=== PATIENT | male | born 1960 | race Two or more races ===

== ENCOUNTER 2019-05-16 15:24 | Inpatient (IN) | payer BC, OTHER ==
[~2019-05-16] VITALS: Ht 167.6 cm; Wt 75.7 kg
--- NOTE | 2019-05-16 15:54 | NUR ---
PATIENT BROUGHT BACK TO ROOM IN A WHEEL CHAIR.
--- NOTE | 2019-05-16 16:14 | NUR ---
THIS IS A 58 YO M W/ C/O CHEST TIGHTNESS THAT STARTED 2 DAYS AGO. TODAY HE HAD SUDDEN ONSET OF DIZZINESS, SWEATING AND CHILLS. PATIENTS RESPIRATIONS ARE EVEN AND UNLABORED. PATIENT IS IN NO ACUTE DISTRESS. PATIENT IS RESTING ON GURNEY WITH FAMILY AT BEDSIDE AWAITING EVAL FROM PROVIDER. DENIES FURTHER NEEDS AT THIS TIME.
[2019-05-16 16:43] LABS: BASOPHILS # (AUTO) 0.04 x10^3/uL (0-0.1); BASOPHILS % (AUTO) 0 % (0-1); EOSINOPHILS # (AUTO) 0.08 x10^3/uL (0-0.4); EOSINOPHILS % (AUTO) 1 % (1-7); LYMPHOCYTES # (AUTO) 1.56 x10^3/uL (1-3.4); LYMPHOCYTES % (AUTO) 15 % (22-44); MD NO; MEAN CORPUSCULAR HEMOGLOBIN 31.3 pg (27.5-34.5); MEAN CORPUSCULAR HGB CONC 33.6 g/dL (33.2-36.2); MEAN CORPUSCULAR VOLUME 93.3 fL (81-97); MONOCYTES # (AUTO) 0.46 x10^3/uL (0.2-0.8); MONOCYTES % (AUTO) 5 % (2-9); NEUTROPHILS % (AUTO) 79 % (42-75); PLATELET COUNT 254 x10^3/uL (130-400); RED CELL DISTRIBUTION WIDTH 13.7 % (9.4-14.8)
[2019-05-16] MEDS ORDERED: ONDANSETRON 2MG/ML, 2ML ONE (16:44)
[2019-05-16] MEDS ORDERED: ASPIRIN 81 MG TABLET CHEW ONE (16:44)
--- NOTE | 2019-05-16 16:44 | NUR ---
FAMILY CAME OUT TO HALLWAY AND STATED THAT THE PATIENT FELT LIKE HE WAS GOING TO VOMIT. CAME IN TO ASSESS VS. BP 78/53 HR 74. CASING TRIMMER SUSPICIOUS FOR ST ELEVATION. NEWSPAPER REPORTER CAME IN TO GET AN EKG. INFORMED OF CHANGES. 1L NS BOLUS STARTED.
[2019-05-16 16:54] LABS: INTERNATIONAL NORMALIZED RATIO 1.28 (0.93-1.1); PROTHROMBIN TIME 13.3 Seconds (9.6-11.5)
[2019-05-16 16:55] LABS: ALANINE AMINOTRANSFERASE 48 U/L (12-78); ALBUMIN 3.8 g/dL (3.4-5.0); ANION GAP 8 mmol/L (5-15); CHLORIDE 110 mmol/L (98-107); CREATININE 1.15 mg/dL (0.7-1.3)
[2019-05-16 17:00] LABS: ALKALINE PHOSPHATASE 88 U/L (45-117); BILIRUBIN,TOTAL 0.3 mg/dL (0.2-1.0); TOTAL PROTEIN 7.4 g/dL (6.4-8.2)
[2019-05-16] MEDS ORDERED: FENTANYL PF 100 MCG/2ML IVPush ONE (17:00)
[2019-05-16] MEDS ORDERED: MORPHINE SULFATE 4 MG/ML, 1ML IVPush PRN (17:00)
[2019-05-16] MEDS ORDERED: SODIUM CHLORIDE 0.9%, 500ML IVBOLUS ONE ×2 (17:00→17:30)
[2019-05-16] MEDS ORDERED: ONDANSETRON 2MG/ML, 2ML IVPush ONE (17:00)
[2019-05-16] MEDS ORDERED: ASPIRIN 81 MG TABLET CHEW PO ONE (17:00)
[2019-05-16] MEDS ORDERED: FENTANYL PF 100 MCG/2ML ONE (17:03)
--- NOTE | 2019-05-16 17:09 | NUR ---
CRITICAL LAB VALUE: TROPONIN 1.380 REPORTED TO .
[2019-05-16] MEDS ORDERED: HEPARIN 5,000 UNITS/ML, 1ML IV ONE (17:30)
[2019-05-16] MEDS ORDERED: HEPARIN 25,000 UNITS/500ML PMX 500 ML IV PRN (17:30)
[2019-05-16] MEDS ORDERED: HEPARIN 25,000 UNITS/500ML PMX 500 ML ONE (18:02)
[2019-05-16] MEDS ORDERED: HEPARIN 5,000 UNITS/ML, 1ML ONE (18:02)
--- NOTE | 2019-05-16 18:16 | NUR ---
HEPARIN STARTED PER EMAR.
[2019-05-16 18:45] VITALS: BP 122/92
[2019-05-16] MEDS ORDERED: LORazepam 2 MG/ML, 1ML IVPush PRN (19:00)
[2019-05-16] MEDS ORDERED: morphine SULFATE 10 MG/ML, 1ML IVPush PRN (19:00)
[2019-05-16] MEDS ORDERED: ONDANSETRON 2MG/ML, 2ML IVPush PRN (19:00)
[2019-05-16] MEDS ORDERED: BISACODYL 10 MG SUPP PR PRN (19:00)
[2019-05-16] MEDS ORDERED: LIDODERM 5% PATCH TD PRN (19:00)
[2019-05-16] MEDS ORDERED: ENALAPRILAT 1.25 MG/ML, 2ML IVPush PRN (19:00)
[2019-05-16 19:41] VITALS: BP 97/64
[2019-05-16] MEDS: SODIUM CHLORIDE 0.9% 1,000 ML IV SCH (20:04)
[2019-05-17] MEDS: HEPARIN 5,000 UNITS/ML, 1ML IV PRN ×2 (00:56→08:33)
[2019-05-17 01:49] VITALS: BP 108/69
[2019-05-17] MEDS: SODIUM CHLORIDE 0.9% 1,000 ML IV SCH ×5 (04:39→20:39)
[2019-05-17] MEDS: LIDODERM REMOVE PATCH NOTE XX SCH ×2 (07:00→19:00)
[2019-05-17 07:06] LABS: BASOPHILS # (AUTO) 0.02 x10^3/uL (0-0.1); BASOPHILS % (AUTO) 0 % (0-1); EOSINOPHILS # (AUTO) 0.09 x10^3/uL (0-0.4); EOSINOPHILS % (AUTO) 1 % (1-7); LYMPHOCYTES # (AUTO) 2.45 x10^3/uL (1-3.4); LYMPHOCYTES % (AUTO) 22 % (22-44); MD NO; MEAN CORPUSCULAR HEMOGLOBIN 31.2 pg (27.5-34.5); MEAN CORPUSCULAR HGB CONC 33.5 g/dL (33.2-36.2); MEAN CORPUSCULAR VOLUME 93.2 fL (81-97); MEAN PLATELET VOLUME 9.1 fL (7.4-10.4); MONOCYTES # (AUTO) 0.84 x10^3/uL (0.2-0.8); MONOCYTES % (AUTO) 7 % (2-9); NEUTROPHILS # (AUTO) 7.94 x10^3/uL (1.8-6.8); NEUTROPHILS % (AUTO) 70 % (42-75); PLATELET COUNT 239 x10^3/uL (130-400); RED BLOOD COUNT 4.85 x10^6/uL (4.38-5.82)
[2019-05-17 07:19] LABS: CHLORIDE 114 mmol/L (98-107)
[2019-05-17 07:31] LABS: ANION GAP 8 mmol/L (5-15); CALCIUM 8.4 mg/dL (8.5-10.1); CHOL/HDL RATIO 5.3; CHOLESTEROL, TOTAL 203 mg/dL (140-239); CREATININE 0.98 mg/dL (0.7-1.3); HDL CHOL % 19 % (26-37); HDL CHOLESTEROL (DIRECT) 38 mg/dL (40-60); LDL CHOLESTEROL,CALCULATED 132 mg/dL (54-169); LDL/HDL RATIO 3.5 (0.5-3.0); TRIGLYCERIDES 165 mg/dL (50-200); VLDL CHOLESTEROL 33 mg/dL (0-25)
[2019-05-17] MEDS: ASPIRIN 81 MG TABLET EC PO SCH (08:32)
[2019-05-17] MEDS: METOPROLOL TARTRATE 25 MG TABLET PO SCH ×2 (08:33→17:56)
[2019-05-17 09:09] VITALS: BP 111/74
[2019-05-17] MEDS ORDERED: MIDAZOLAM 1 MG/ML, 5ML ONE (10:50)
[2019-05-17] MEDS ORDERED: FENTANYL PF 100 MCG/2ML ONE (10:50)
[2019-05-17] MEDS ORDERED: BIVALIRUDIN 250 MG ONE (10:51)
[2019-05-17] MEDS ORDERED: TICAGRELOR 90 MG TABLET ONE (10:51)
[2019-05-17] MEDS ORDERED: LIDOCAINE-MPF 1%, 5ML ONE (10:51)
[2019-05-17] MEDS ORDERED: HEPARIN 1,000 UNITS/ML, 10ML ONE (10:51)
[2019-05-17] MEDS ORDERED: VERAPAMIL 2.5 MG/ML, 2ML ONE (10:51)
[2019-05-17] MEDS ORDERED: SODIUM CHLORIDE 0.9% 1,000 ML IV SCH (11:00)
[2019-05-17] MEDS ORDERED: NITROGLYCERIN 5 MG/ML, 10ML ONE (11:18)
[2019-05-17 11:20] LABS: MICROSCOPIC NOT IND
[2019-05-17] MEDS ORDERED: ACETAMINOPHEN 325 MG TABLET PO PRN (14:00)
[2019-05-17 14:48] VITALS: BP 91/60
[2019-05-17 17:45] VITALS: BP 94/63
[2019-05-17 19:40] VITALS: BP 100/64
[2019-05-17] MEDS: ATORVASTATIN 80 MG TABLET PO SCH (20:39)
[2019-05-17] MEDS: TICAGRELOR 90 MG TABLET PO SCH (20:39)
[2019-05-18 01:12] VITALS: BP 98/59
[2019-05-18] MEDS: SODIUM CHLORIDE 0.9% 1,000 ML IV SCH ×4 (03:16→20:58)
[2019-05-18 05:05] LABS: BASOPHILS # (AUTO) 0.06 x10^3/uL (0-0.1); BASOPHILS % (AUTO) 1 % (0-1); EOSINOPHILS # (AUTO) 0.08 x10^3/uL (0-0.4); EOSINOPHILS % (AUTO) 1 % (1-7); LYMPHOCYTES # (AUTO) 2.01 x10^3/uL (1-3.4); LYMPHOCYTES % (AUTO) 21 % (22-44); MD NO; MEAN CORPUSCULAR HEMOGLOBIN 31.1 pg (27.5-34.5); MEAN CORPUSCULAR HGB CONC 33.4 g/dL (33.2-36.2); MEAN CORPUSCULAR VOLUME 93.1 fL (81-97); MEAN PLATELET VOLUME 8.9 fL (7.4-10.4); MONOCYTES # (AUTO) 1.02 x10^3/uL (0.2-0.8); MONOCYTES % (AUTO) 10 % (2-9); NEUTROPHILS # (AUTO) 6.62 x10^3/uL (1.8-6.8); NEUTROPHILS % (AUTO) 68 % (42-75); PLATELET COUNT 222 x10^3/uL (130-400); RED BLOOD COUNT 4.31 x10^6/uL (4.38-5.82); RED CELL DISTRIBUTION WIDTH 13.6 % (9.4-14.8)
[2019-05-18 05:15] LABS: ANION GAP 7 mmol/L (5-15); CALCIUM 7.9 mg/dL (8.5-10.1); CHLORIDE 112 mmol/L (98-107)
[2019-05-18 05:21] LABS: ALANINE AMINOTRANSFERASE 43 U/L (12-78); ALKALINE PHOSPHATASE 67 U/L (45-117); BILIRUBIN,TOTAL 0.8 mg/dL (0.2-1.0); CREATININE 1.02 mg/dL (0.7-1.3); TOTAL PROTEIN 5.8 g/dL (6.4-8.2)
[2019-05-18] MEDS: METOPROLOL TARTRATE 25 MG TABLET PO SCH ×2 (05:34→17:52)
[2019-05-18] MEDS: ASPIRIN 81 MG TABLET EC PO SCH (05:34)
[2019-05-18 05:35] VITALS: BP 105/67
[2019-05-18 08:52] VITALS: BP 101/60
[2019-05-18] MEDS: TICAGRELOR 90 MG TABLET PO SCH ×2 (10:03→20:57)
[2019-05-18] MEDS: LIDODERM REMOVE PATCH NOTE XX SCH ×2 (10:04→19:00)
[2019-05-18 16:00] VITALS: BP 113/70
[2019-05-18 20:29] VITALS: BP 98/64
[2019-05-18] MEDS: ATORVASTATIN 80 MG TABLET PO SCH (20:57)
[2019-05-19 00:11] VITALS: BP 96/63
[2019-05-19] MEDS: ASPIRIN 81 MG TABLET EC PO SCH (05:29)
[2019-05-19] MEDS: METOPROLOL TARTRATE 25 MG TABLET PO SCH (05:30)
[2019-05-19 08:00] VITALS: BP 102/67
[2019-05-19] MEDS: TICAGRELOR 90 MG TABLET PO SCH (09:05)
[2019-05-19] MEDS ORDERED: ATOR-2 PO (11:14)
[2019-05-19] MEDS ORDERED: LIDO700A20 TD (11:14)
[2019-05-19] MEDS ORDERED: METO25TA91 PO (11:14)
[2019-05-19] MEDS ORDERED: ASPI81TA45 PO (11:14)
[2019-05-19] MEDS ORDERED: TICA90TA PO (11:14)
[2019-05-19] MEDS ORDERED: METOPROLOL SUCCINATE 25 MG TAB.ER.24H PO SCH (18:00)
== END 2019-05-19 13:54 | disposition home or self-care (01) | DRG 229 ==
LOC: ED 18:24 → EDIP 18:35 → 5SO 18:43 → DCLOUNGE 05-19 13:46
PROVIDERS: ADMIT Hospitalist; ATTEND Internal Medicine
PROC: 02713GZ Dilation of Coronary Artery, Two Arteries with Four or More Intraluminal Devices, Percutaneous Approach (ICD-10-PCS; principal; 2019-05-17)
PROC: 02C10ZZ Extirpation of Matter from Coronary Artery, Two Arteries, Open Approach (ICD-10-PCS; 2019-05-17)
PROC: B2111ZZ Fluoroscopy of Multiple Coronary Arteries using Low Osmolar Contrast (ICD-10-PCS; 2019-05-17)
PROC: B2141ZZ Fluoroscopy of Right Heart using Low Osmolar Contrast (ICD-10-PCS; 2019-05-17)
PROC: 4A0335C Measurement of Arterial Flow, Coronary, Percutaneous Approach (ICD-10-PCS; 2019-05-17)
DX: I21.4 Non-ST elevation (NSTEMI) myocardial infarction (principal); R79.89 Other specified abnormal findings of blood chemistry; E78.5 Hyperlipidemia, unspecified; D72.829 Elevated white blood cell count, unspecified; I95.9 Hypotension, unspecified; E11.65 Type 2 diabetes mellitus with hyperglycemia; Z87.891 Personal history of nicotine dependence; Z90.49 Acquired absence of other specified parts of digestive tract
CPT/HCPCS: 36415; 92973; 93458; 93571; C9601; 71045; 80048; 80053; 80061; 81003; 83036; 83735; 84100; 84484; 85025; 85520; 85610; 85730; 93005; 93306; 96361; 96374; 99156; 99157; 99291; C1769; C1894; G0378; J0583; J1644; J2250; J2405; J3010; C1725; C1757; C1874; C1887; J7030; J7040; Q9967